=== PATIENT | female | born 1985 | race Caucasian/White ===

== ENCOUNTER → 2017-03-12 | Outpatient (REF) | payer OTHER | LOC: M LAB REF 14:41 | PROVIDERS: ATTEND Physician Assistant | DX: J02.9 Acute pharyngitis, unspecified (principal) ==

== ENCOUNTER → 2020-03-04 | Outpatient (CLI) | payer SELFPAY | LOC: M LABSMTC 12:41 | PROVIDERS: ATTEND Pediatrics | DX: Z20.828 Contact with and (suspected) exposure to other viral communicable diseases (principal) ==

== ENCOUNTER → 2024-06-10 | Outpatient (CLI) | payer OTHER | LOC: M RAD 14:47 | PROVIDERS: ATTEND Nurse Practitioner Family | DX: N92.1 Excessive and frequent menstruation with irregular cycle (principal); N83.201 Unspecified ovarian cyst, right side; N85.4 Malposition of uterus; N85.2 Hypertrophy of uterus ==